=== PATIENT | male | born 1980 | race Caucasian/White ===

== ENCOUNTER 2018-07-02 20:29 | Emergency (ER) | payer MEDICAID ==
[~2018-07-02] VITALS: Ht 172.7 cm; Wt 81.6 kg
--- NOTE | 2018-07-02 21:35 | NUR ---
Pt BIBRA complaining of penile pain, swelling, redness x 2 days. Pt states that he, "was having sex with his gf and a few hours later it started to turn red and swell." Pt also states RUQ pain non-radiating. Pt respirations even and unlabored. Pt put on the monitor and pending eval from ER .
[2018-07-02] MEDS ORDERED: AZITHROMYCIN 250 MG TABLET PO ONE (23:00)
[2018-07-02] MEDS ORDERED: CEFTRIAXONE 500 MG VIAL IM ONE (23:00)
[2018-07-02] MEDS ORDERED: DEXAMETHASONE SOLN 1 MG/1 ML UDC PO ONE (23:00)
[2018-07-02] MEDS ORDERED: CEFTRIAXONE 500 MG VIAL ONE (23:03)
[2018-07-02] MEDS ORDERED: DEXAMETHASONE SOLN 1 MG/1 ML UDC ONE (23:04)
[2018-07-02] MEDS ORDERED: AZITHROMYCIN 250 MG TABLET ONE (23:05)
[2018-07-02] MEDS ORDERED: DEXAMETHASONE 4 MG TABLET ONE (23:05)
[2018-07-02] MEDS ORDERED: LIDOCAINE HCL/MPF 1% 30 ML VIAL IJ ONE (23:06)
--- NOTE | 2018-07-03 00:30 | NUR ---
Patient discharged to home in stable condition. Written and verbal after care instructions given. Patient verbalizes understanding of instruction. Pt ambulatory with steady gait. Pt received homeless resources and waiver.
[2018-07-03 00:54] VITALS: BP 128/82
== END 2018-07-03 01:07 | disposition home or self-care (01) ==
LOC: ER 20:32
DX: N48.89 Other specified disorders of penis (principal); F12.90 Cannabis use, unspecified, uncomplicated; Z59.0 Homelessness; Z11.3 Encounter for screening for infections with a predominantly sexual mode of transmission
CPT/HCPCS: 87491; 87591; J0696; J3490; J8540

== ENCOUNTER 2018-10-19 09:39 | Emergency (ER) | payer MEDICAID ==
[~2018-10-19] VITALS: Ht 172.7 cm; Wt 81.6 kg
[2018-10-19 09:55] VITALS: BP 128/80
[2018-10-19] MEDS ORDERED: IBUPROFEN 400 MG TABLET PO ONE (10:30)
[2018-10-19] MEDS ORDERED: TERBINAFINE HCL 250 MG TABLET PO ONE (10:30)
[2018-10-19] MEDS ORDERED: SULFAMETH/TRIMETH 800/160 MG 1 UDTAB TABLET PO ONE ×2 (10:30→10:32)
[2018-10-19] MEDS ORDERED: CEPHALEXIN MONOHYDRATE 500 MG CAPSULE PO ONE ×2 (10:30→10:31)
[2018-10-19] MEDS ORDERED: IBUPROFEN 400 MG TABLET ONE (10:32)
--- NOTE | 2018-10-19 10:50 | NUR ---
MAGDI. FOOT WAS SOAKED AND DRY. PATIENT GIVEN RESOURCES FOR [facility], PER PATIENT HE WILL GO TO [facility]. FOOD AND MULTIPLE NON-SKID SOCKS PROVIDED. PATIENT IN STABLE CONDITION. DISCHARGE INSTRUCTIONS PROVIDED AND PATIENT VERBALIZED UNDERSTANDING.
== END 2018-10-19 11:10 | disposition home or self-care (01) ==
LOC: ER 09:39
DX: B35.3 Tinea pedis (principal); Z59.0 Homelessness

== ENCOUNTER 2024-01-16 10:12 | Emergency (ER) | payer MEDICAID ==
[~2024-01-16] VITALS: Ht 172.7 cm; Wt 81.6 kg
[2024-01-16] MEDS ORDERED: ACETAMINOPHEN ES 500 MG TABLET ONE (10:38)
[2024-01-16] MEDS: ACETAMINOPHEN ES 500 MG TABLET PO ONE (10:40)
[2024-01-16 11:24] VITALS: BP 116/64; TEMP 98; O2SAT 99
== END 2024-01-16 11:24 | disposition home or self-care (01) ==
LOC: ER 10:16
DX: S20.211A Contusion of right front wall of thorax, initial encounter (principal); Z59.00 Homelessness unspecified; V23.49XA Other motorcycle driver injured in collision with car, pick-up truck or van in traffic accident, initial encounter; Y93.89 Activity, other specified; Y92.488 Other paved roadways as the place of occurrence of the external cause; Y99.8 Other external cause status
CPT/HCPCS: 71100-TC